=== PATIENT | female | born 1980 | race Caucasian/White ===

== ENCOUNTER 2023-02-18 11:49 | Inpatient (IN) | payer OTHER ==
[2023-02-18 12:58] VITALS: BMI 23.3
[2023-02-18] MEDS ORDERED: P-EPHED 60MG/TRIPROLIDI 2.5MG TABLET PO PRN (14:00)
[2023-02-18] MEDS ORDERED: LOPERAMIDE HCL 2 MG CAPSULE PO PRN (14:00)
[2023-02-18] MEDS ORDERED: BENZONATATE 200 MG CAPSULE PO PRN (14:00)
[2023-02-18] MEDS ORDERED: DICYCLOMINE HCL 10 MG CAPSULE PO PRN (14:00)
[2023-02-18] MEDS ORDERED: MAGNESIUM HYDROX 2400MG/30ML ORAL SUSPENSION 30 ML CUP PO PRN (14:00)
[2023-02-18] MEDS ORDERED: METHOCARBAMOL 500 MG TABLET PO PRN (14:00)
[2023-02-18] MEDS ORDERED: guaiFENesin 600 MG TABLET.ER (FP) PO PRN (14:00)
[2023-02-18] MEDS ORDERED: BENZOCAINE/MENTHOL (CHLORASEPTIC ) LOZENGE MM PRN (14:00)
[2023-02-18] MEDS ORDERED: MELATONIN 5 MG TABLETS PO PRN (14:00)
[2023-02-18] MEDS ORDERED: TRIMETHOBENZAMIDE HCL 200MG/2ML INJ IM ONE (14:00)
[2023-02-18] MEDS ORDERED: ONDANSETRON *ODT* 4 MG TABLET SL PRN (14:00)
[2023-02-18] MEDS ORDERED: LORazepam 2 MG/ML SDV VIAL IM ONE (14:00)
[2023-02-18] MEDS ORDERED: POLYETHYLENE GLYCOL (HEALTHYLAX) 3350 17 GM PACKET PO PRN (14:00)
[2023-02-18] MEDS ORDERED: BISMUTH SUBSALICYLATE 262 MG/15 ML BTL PO PRN (14:00)
[2023-02-18] MEDS ORDERED: MAG HYDROX/AL HYDROX/SIMETH 30 ML UNIT-DOSE CUP PO PRN (14:00)
[2023-02-18] MEDS ORDERED: LORazepam 1 MG TABLET PO PRN (14:05)
[2023-02-18 16:32] LABS: HEMATOCRIT 22.6 % (32.4-45.2); HEMOGLOBIN 7.4 GM/dL (10.7-15.3); MCH 29.2 pg (25.7-33.7); MCHC 32.8 g/dl (32.0-36.0); MEAN CELL VOLUME 88.9 fl (80-96); RBC 2.54 M/mm3 (3.60-5.2); RDW 23.8 % (11.6-15.6)
[2023-02-18 16:36] LABS: POTASSIUM 3.2 mmol/L (3.5-5.1)
[2023-02-18 16:39] LABS: CALCIUM 8.5 mg/dL (8.5-10.1)
[2023-02-18 16:40] LABS: ALBUMIN 2.5 g/dl (3.4-5.0)
[2023-02-18 16:42] LABS: CREATININE 0.7 mg/dL (0.55-1.3)
[2023-02-18 16:44] LABS: BILIRUBIN,TOTAL 8.8 mg/dL (0.2-1); TOT PROT 6.9 g/dl (6.4-8.2)
[2023-02-18 16:56] LABS: MEAN PLT VOLUME 8.5 fl (7.5-11.1)
[2023-02-18 17:03] LABS: PLATELET COUNT 36 10^3/uL (134-434)
[2023-02-18] MEDS: LORazepam 2 MG TABLET PO SCH ×2 (17:25→23:14)
[2023-02-18] MEDS: THIAMINE HCL 100 MG TABLET (FP) PO SCH (23:13)
[2023-02-19] MEDS: LORazepam 2 MG TABLET PO SCH ×4 (05:54→22:47)
[2023-02-19] MEDS: PRENATAL VITAMINS W/ FOLIC ACID TABLET (FP) PO SCH (10:52)
[2023-02-19] MEDS: THIAMINE HCL 100 MG TABLET (FP) PO SCH (22:47)
[2023-02-20] MEDS: LORazepam 1 MG TABLET PO SCH ×4 (06:14→22:33)
[2023-02-20] MEDS: PRENATAL VITAMINS W/ FOLIC ACID TABLET (FP) PO SCH (10:31)
[2023-02-20] MEDS ORDERED: POTASSIUM CHLORIDE ORAL LIQUID 20 MEQ/15 ML PO ONE ×2 (16:56→18:15)
[2023-02-20] MEDS: THIAMINE HCL 100 MG TABLET (FP) PO SCH (22:34)
[2023-02-21] MEDS ORDERED: LORazepam 0.5 MG TABLET PO PRN
[2023-02-21] MEDS: LORazepam 0.5 MG TABLET PO SCH ×4 (05:39→22:22)
[2023-02-21] MEDS: PRENATAL VITAMINS W/ FOLIC ACID TABLET (FP) PO SCH (10:38)
[2023-02-21 11:55] LABS: POTASSIUM 3.1 mmol/L (3.5-5.1)
[2023-02-21 11:59] LABS: ALBUMIN 2.1 g/dl (3.4-5.0); BLOOD UREA NITROGEN 5.8 mg/dL (7-18)
[2023-02-21 12:02] LABS: CREATININE 0.6 mg/dL (0.55-1.3)
[2023-02-21 12:03] LABS: BILIRUBIN,TOTAL 6.2 mg/dL (0.2-1)
[2023-02-21 12:04] LABS: TOT PROT 5.7 g/dl (6.4-8.2)
[2023-02-21] MEDS ORDERED: POTASSIUM CHLORIDE ORAL LIQUID 20 MEQ/15 ML PO ONE ×2 (12:31→13:04)
[2023-02-21] MEDS ORDERED: POTASSIUM CHLORIDE TABS 20 MEQ TABLET.ER (FP) PO ONE (13:30)
[2023-02-21 16:47] VITALS: TEMP 98.7
[2023-02-21 17:24] LABS: BASO % 0.6 % (0-2.0); EOS % 1.8 % (0-4.5); HEMATOCRIT 20.5 % (32.4-45.2); LYMPH % 23.4 % (8-40); MCH 29.6 pg (25.7-33.7); MCHC 32.5 g/dl (32.0-36.0); MEAN CELL VOLUME 91.2 fl (80-96); MEAN PLT VOLUME 10.5 fl (7.5-11.1); MONO % 13.1 % (3.8-10.2); NEUT % 61.1 % (42.8-82.8); RBC 2.25 M/mm3 (3.60-5.2); RDW 24.5 % (11.6-15.6); WHITE BLOOD COUNT 2.2 K/mm3 (4.0-10.0)
[2023-02-21 17:30] LABS: HEMOGLOBIN 6.7 GM/dL (10.7-15.3)
[2023-02-21 17:31] LABS: PLATELET COUNT 35 10^3/uL (134-434)
[2023-02-21 17:59] VITALS: BP 107/65; PULSE 90; RESP 16
[2023-02-21] MEDS: THIAMINE HCL 100 MG TABLET (FP) PO SCH (22:21)
[2023-02-22] MEDS ORDERED: LORazepam 0.5 MG TABLET PO ONE (05:00)
== END 2023-02-22 03:07 | disposition short-term general hospital (02) | DRG 775 ==
LOC: YASAS 11:49 → Y6N 15:22
PROVIDERS: ADMIT Allergy & Immunology; ATTEND Surgery
PROC: HZ2ZZZZ Detoxification Services for Substance Abuse Treatment (ICD-10-PCS; principal; 2023-02-18)
DX: F10.230 Alcohol dependence with withdrawal, uncomplicated (principal); D61.818 Other pancytopenia; D64.9 Anemia, unspecified; E87.6 Hypokalemia; K74.60 Unspecified cirrhosis of liver; R73.9 Hyperglycemia, unspecified; R94.5 Abnormal results of liver function studies; Z87.820 Personal history of traumatic brain injury; Z95.828 Presence of other vascular implants and grafts
CPT/HCPCS: 36415; 80053; 81025; 83036; 85025; 85027; 86780; 93005; 93010; C9803-CS; U0003; U0005

== ENCOUNTER 2023-02-18 20:47 | Emergency (ER) | payer OTHER ==
[2023-02-18 20:51] VITALS: BMI 17.3
[2023-02-18 22:55] LABS: BASO % 1.4 % (0-2.0); EOS % 0.5 % (0-4.5); HEMATOCRIT 23.3 % (32.4-45.2); HEMOGLOBIN 7.6 GM/dL (10.7-15.3); LYMPH % 18.5 % (8-40); MCHC 32.9 g/dl (32.0-36.0); MEAN CELL VOLUME 88.2 fl (80-96); MONO % 5.8 % (3.8-10.2); NEUT % 73.8 % (42.8-82.8); RBC 2.64 M/mm3 (3.60-5.2); RDW 24.9 % (11.6-15.6); WHITE BLOOD COUNT 4.9 K/mm3 (4.0-10.0)
[2023-02-18 23:01] LABS: INR 2.2 (0.83-1.09); PROTHROMBIN TIME (PATIENT) 25.3 SEC (9.7-13.0)
[2023-02-18 23:12] LABS: POTASSIUM 4.8 mmol/L (3.5-5.1)
[2023-02-18 23:14] LABS: BLOOD UREA NITROGEN 5.9 mg/dL (7-18); CALCIUM 8.3 mg/dL (8.5-10.1)
[2023-02-18 23:15] LABS: ALBUMIN 2.5 g/dl (3.4-5.0)
[2023-02-18 23:18] LABS: CREATININE 0.7 mg/dL (0.55-1.3)
[2023-02-18 23:19] LABS: BILIRUBIN,TOTAL 8.4 mg/dL (0.2-1); TOT PROT 7.1 g/dl (6.4-8.2)
[2023-02-18 23:22] LABS: ANISOCYTOSIS 3+; MACROCYTOSIS 0; TARGET CELLS 1+
[2023-02-18 23:23] LABS: PLATELET COUNT 62 10^3/uL (134-434)
[2023-02-18 23:24] LABS: MEAN PLT VOLUME 9.5 fl (7.5-11.1)
[2023-02-19 01:27] VITALS: BP 137/91; PULSE 89; RESP 12; TEMP 99.2
[2023-02-21] MEDS ORDERED: POTASSIUM CHLORIDE ORAL LIQUID 20 MEQ/15 ML PO ONE (13:30)
== END 2023-02-19 02:32 | disposition home or self-care (01) ==
LOC: JER 20:47
DX: R17 Unspecified jaundice (principal); R10.13 Epigastric pain; R10.11 Right upper quadrant pain; R53.1 Weakness; K70.9 Alcoholic liver disease, unspecified; F10.230 Alcohol dependence with withdrawal, uncomplicated; Y90.9 Presence of alcohol in blood, level not specified
CPT/HCPCS: 36415; 76705-TC; 80053; 83690; 85025; 85610; 93005; 93010; 99285-25

== ENCOUNTER 2023-02-21 19:42 | Inpatient (IN) | payer OTHER ==
[2023-02-21 20:45] LABS: BASO % 0.6 % (0-2.0); EOS % 1.3 % (0-4.5); HEMATOCRIT 23.8 % (32.4-45.2); HEMOGLOBIN 7.4 GM/dL (10.7-15.3); MCH 28.8 pg (25.7-33.7); MCHC 31.2 g/dl (32.0-36.0); MEAN CELL VOLUME 92.1 fl (80-96); MEAN PLT VOLUME 9.7 fl (7.5-11.1); MONO % 9.9 % (3.8-10.2); NEUT % 68.2 % (42.8-82.8); PLATELET COUNT 46 10^3/uL (134-434); RBC 2.59 M/mm3 (3.60-5.2); RDW 24.3 % (11.6-15.6); WHITE BLOOD COUNT 2.9 K/mm3 (4.0-10.0)
[2023-02-21 21:38] LABS: INR 2.14 (0.83-1.09); PROTHROMBIN TIME (PATIENT) 24.6 SEC (9.7-13.0)
[2023-02-21 21:41] LABS: ACTIVATED PTT 42.6 SECONDS (25.2-36.5)
[2023-02-21] MEDS ORDERED: FAMOTIDINE 20 MG/50 ML IVPB 20 MG/50 ML MG IVPB ONE ×2 (22:05)
[2023-02-21] MEDS ORDERED: MAG HYDROX/AL HYDROX/SIMETH 30 ML UNIT-DOSE CUP ONE (22:05)
[2023-02-21] MEDS ORDERED: MAG HYDROX/AL HYDROX/SIMETH 30 ML UNIT-DOSE CUP PO ONE (22:05)
[2023-02-21 22:23] LABS: POTASSIUM 3.7 mmol/L (3.5-5.1)
[2023-02-21 22:25] LABS: ALBUMIN 2.4 g/dl (3.4-5.0); BLOOD UREA NITROGEN 5.8 mg/dL (7-18); CALCIUM 8.6 mg/dL (8.5-10.1); MAGNESIUM 1.4 mg/dL (1.8-2.4)
[2023-02-21 22:28] LABS: BILIRUBIN,DIRECT 4.2 mg/dL (0.0-0.2); CREATININE 0.7 mg/dL (0.55-1.3)
[2023-02-21 22:30] LABS: BILIRUBIN,TOTAL 6.5 mg/dL (0.2-1); TOT PROT 6.7 g/dl (6.4-8.2)
[2023-02-21] MEDS ORDERED: PANTOPRAZOLE SODIUM 40 MG VIAL IVPUSH ONE (22:34)
[2023-02-21] MEDS ORDERED: ACETAMINOPHEN 1000 MG/100 ML BAG IVPB ONE (22:42)
[2023-02-21] MEDS ORDERED: PANTOPRAZOLE SODIUM 40 MG/100 ML BAG IVPB ONE (23:26)
[2023-02-21] MEDS ORDERED: ACETAMINOPHEN INJECTION 100 ML IVPB ONE (23:45)
[2023-02-22] MEDS ORDERED: LORazepam 0.5 MG TABLET PO PRN (03:23)
[2023-02-22] MEDS ORDERED: MAGNESIUM SULF 50% (8.12 MEQ/2 ML-1 GM VIAL) IVPB ONE ×2 (03:55→14:15)
[2023-02-22] MEDS ORDERED: MAGNESIUM 1GM/D5W 100ML - 100 ML IVPB IVPB ONE (06:00)
[2023-02-22] MEDS: THIAMINE HCL 100 MG TABLET (FP) PO SCH (09:08)
[2023-02-22] MEDS: FOLIC ACID 1 MG TABLET (FP) PO SCH (09:08)
[2023-02-22] MEDS: PANTOPRAZOLE SODIUM 40 MG VIAL IVPUSH SCH ×2 (09:09→21:08)
[2023-02-22 11:41] LABS: BASO % 0.6 % (0-2.0); HEMATOCRIT 25.7 % (32.4-45.2); HEMOGLOBIN 8.3 GM/dL (10.7-15.3); LYMPH % 22.9 % (8-40); MCH 29.4 pg (25.7-33.7); MCHC 32.3 g/dl (32.0-36.0); MEAN PLT VOLUME 9.5 fl (7.5-11.1); MONO % 12.8 % (3.8-10.2); NEUT % 60.7 % (42.8-82.8); PLATELET COUNT 49 10^3/uL (134-434); RBC 2.82 M/mm3 (3.60-5.2); RDW 23.4 % (11.6-15.6); WHITE BLOOD COUNT 2.3 K/mm3 (4.0-10.0)
[2023-02-22 11:55] LABS: POTASSIUM 3.4 mmol/L (3.5-5.1)
[2023-02-22 11:56] LABS: ALBUMIN 2.4 g/dl (3.4-5.0)
[2023-02-22 11:58] LABS: BILIRUBIN,DIRECT 4.1 mg/dL (0.0-0.2)
[2023-02-22 12:00] LABS: TOT PROT 6.5 g/dl (6.4-8.2)
[2023-02-22 12:01] LABS: BILIRUBIN,TOTAL 7.5 mg/dL (0.2-1)
[2023-02-22 12:02] LABS: BLOOD UREA NITROGEN 5.5 mg/dL (7-18); CALCIUM 8.1 mg/dL (8.5-10.1); MAGNESIUM 1.8 mg/dL (1.8-2.4)
[2023-02-22 12:05] LABS: CREATININE 0.8 mg/dL (0.55-1.3); PHOSPHOROUS 3.4 mg/dL (2.5-4.9)
[2023-02-22 12:10] LABS: ANISOCYTOSIS 1+; MACROCYTOSIS 1+; OVALOCYTE 1+; TEAR DROP CELLS 1+
[2023-02-22 15:04] LABS: RETICULOCYTES 4.32 % (0.5-1.5)
[2023-02-22] MEDS: PrednisoLONE 15 MG/5 ML UNIT-DOSE CUP PO SCH (15:14)
[2023-02-22] MEDS: LACTULOSE 20 GM/30 ML UDC (FOR ORAL USE ONLY) PO SCH (21:08)
[2023-02-22 21:15] LABS: EPI CELLS 35 /uL (0-25.1); HYALINE CASTS 2 /uL (0-3.1); PH,URINE 6.5 (5.0-8.0); URINE APPEARANCE CLEAR; URINE BILIRUBIN 2+ (NEGATIVE); URINE COLOR DK YELLOW; URINE GLUCOSE (UA) NEGATIVE (NEGATIVE); URINE KETONE TRACE (NEGATIVE); URINE LEUK ESTERASE TRACE (NEGATIVE); URINE NITRITE POSITIVE (NEGATIVE); URINE PROTEIN TRACE (NEGATIVE); URINE RBC 131 /uL (0-23.9); URINE WBC 6 /uL (0-25.8)
[2023-02-23] MEDS ORDERED: TRIMETHOBENZAMIDE HCL 200MG/2ML INJ IM ONE (03:27)
[2023-02-23 09:27] LABS: INR 2.13 (0.83-1.09); PROTHROMBIN TIME (PATIENT) 24.5 SEC (9.7-13.0)
[2023-02-23 09:37] LABS: BASO % 0.3 % (0-2.0); EOS % 0.2 % (0-4.5); HEMATOCRIT 26.6 % (32.4-45.2); HEMOGLOBIN 8.7 GM/dL (10.7-15.3); LYMPH % 18.9 % (8-40); MCH 29.2 pg (25.7-33.7); MCHC 32.7 g/dl (32.0-36.0); MEAN CELL VOLUME 89.4 fl (80-96); MEAN PLT VOLUME 9.1 fl (7.5-11.1); MONO % 10.7 % (3.8-10.2); NEUT % 69.9 % (42.8-82.8); PLATELET COUNT 68 10^3/uL (134-434); RBC 2.98 M/mm3 (3.60-5.2); RDW 23.4 % (11.6-15.6); WHITE BLOOD COUNT 4.4 K/mm3 (4.0-10.0)
[2023-02-23 09:43] LABS: POTASSIUM 3.4 mmol/L (3.5-5.1)
[2023-02-23] MEDS ORDERED: PHYTONADIONE 10 MG/1 ML AMP IVPB ONE (09:45)
[2023-02-23 09:50] LABS: ALBUMIN 2.3 g/dl (3.4-5.0); CALCIUM 8.1 mg/dL (8.5-10.1); MAGNESIUM 1.8 mg/dL (1.8-2.4)
[2023-02-23] MEDS: PANTOPRAZOLE SODIUM 40 MG VIAL IVPUSH SCH ×2 (09:50→22:46)
[2023-02-23] MEDS: LACTULOSE 20 GM/30 ML UDC (FOR ORAL USE ONLY) PO SCH ×2 (09:50→22:45)
[2023-02-23] MEDS: FOLIC ACID 1 MG TABLET (FP) PO SCH (09:50)
[2023-02-23 09:51] LABS: BLOOD UREA NITROGEN 4.9 mg/dL (7-18)
[2023-02-23] MEDS: THIAMINE HCL 100 MG TABLET (FP) PO SCH (09:51)
[2023-02-23] MEDS: PrednisoLONE 15 MG/5 ML UNIT-DOSE CUP PO SCH (09:52)
[2023-02-23 09:53] LABS: BILIRUBIN,DIRECT 3.8 mg/dL (0.0-0.2); BILIRUBIN,TOTAL 6.1 mg/dL (0.2-1); CREATININE 0.7 mg/dL (0.55-1.3); TOT PROT 6.4 g/dl (6.4-8.2)
[2023-02-23 09:54] LABS: BILIRUBIN,TOTAL 6.1 mg/dL (0.2-1); TOT PROT 6.5 g/dl (6.4-8.2)
[2023-02-23] MEDS ORDERED: POTASSIUM CHLORIDE ORAL LIQUID 20 MEQ/15 ML PO ONE (10:53)
[2023-02-23] MEDS: RIFAXIMIN 550 MG TABLET PO SCH ×2 (11:10→22:46)
[2023-02-23] MEDS: POLYETHYLENE GLYCOL (HEALTHYLAX) 3350 17 GM PACKET PO SCH ×2 (16:17→22:45)
[2023-02-24] MEDS ORDERED: MELATONIN 5 MG TABLETS PO PRN (00:35)
[2023-02-24 10:26] LABS: BASO % 1.7 % (0-2.0); EOS % 0.9 % (0-4.5); HEMATOCRIT 25.9 % (32.4-45.2); HEMOGLOBIN 8.5 GM/dL (10.7-15.3); LYMPH % 31.6 % (8-40); MCH 29.6 pg (25.7-33.7); MCHC 32.9 g/dl (32.0-36.0); MEAN CELL VOLUME 89.8 fl (80-96); MEAN PLT VOLUME 9.1 fl (7.5-11.1); MONO % 12.5 % (3.8-10.2); NEUT % 53.3 % (42.8-82.8); PLATELET COUNT 86 10^3/uL (134-434); RBC 2.89 M/mm3 (3.60-5.2); RDW 23.3 % (11.6-15.6); WHITE BLOOD COUNT 5.7 K/mm3 (4.0-10.0)
[2023-02-24 10:31] LABS: INR 2.01 (0.83-1.09); PROTHROMBIN TIME (PATIENT) 23.2 SEC (9.7-13.0)
[2023-02-24 10:49] LABS: POTASSIUM 3.3 mmol/L (3.5-5.1)
[2023-02-24 10:51] LABS: CALCIUM 8.3 mg/dL (8.5-10.1)
[2023-02-24] MEDS: RIFAXIMIN 550 MG TABLET PO SCH (10:51)
[2023-02-24] MEDS: PANTOPRAZOLE SODIUM 40 MG VIAL IVPUSH SCH (10:51)
[2023-02-24] MEDS: POLYETHYLENE GLYCOL (HEALTHYLAX) 3350 17 GM PACKET PO SCH (10:51)
[2023-02-24] MEDS: FOLIC ACID 1 MG TABLET (FP) PO SCH (10:51)
[2023-02-24] MEDS: THIAMINE HCL 100 MG TABLET (FP) PO SCH (10:51)
[2023-02-24 10:52] LABS: ALBUMIN 2.2 g/dl (3.4-5.0); BLOOD UREA NITROGEN 6.8 mg/dL (7-18)
[2023-02-24 10:54] LABS: BILIRUBIN,DIRECT 3.3 mg/dL (0.0-0.2)
[2023-02-24 10:55] LABS: CREATININE 0.8 mg/dL (0.55-1.3)
[2023-02-24 10:56] LABS: TOT PROT 6.3 g/dl (6.4-8.2)
[2023-02-24 10:57] LABS: BILIRUBIN,TOTAL 4.9 mg/dL (0.2-1)
[2023-02-24] MEDS: LACTULOSE 20 GM/30 ML UDC (FOR ORAL USE ONLY) PO SCH ×2 (10:57→21:59)
[2023-02-24] MEDS: PrednisoLONE 15 MG/5 ML UNIT-DOSE CUP PO SCH (12:14)
[2023-02-24] MEDS ORDERED: POTASSIUM CHLORIDE ORAL LIQUID 20 MEQ/15 ML PO ONE (14:41)
[2023-02-25] MEDS ORDERED: PANTOPRAZOLE SODIUM 40 MG VIAL IVPUSH SCH (10:00)
[2023-02-25 10:01] LABS: INR 1.93 (0.83-1.09); PROTHROMBIN TIME (PATIENT) 22.2 SEC (9.7-13.0)
[2023-02-25] MEDS: FOLIC ACID 1 MG TABLET (FP) PO SCH (10:11)
[2023-02-25] MEDS: THIAMINE HCL 100 MG TABLET (FP) PO SCH (10:11)
[2023-02-25] MEDS: LACTULOSE 20 GM/30 ML UDC (FOR ORAL USE ONLY) PO SCH ×2 (10:11)
[2023-02-25 10:15] LABS: POTASSIUM 3.2 mmol/L (3.5-5.1)
[2023-02-25 10:18] LABS: ALBUMIN 2.4 g/dl (3.4-5.0); BLOOD UREA NITROGEN 6.4 mg/dL (7-18); CALCIUM 8.4 mg/dL (8.5-10.1)
[2023-02-25 10:21] LABS: BILIRUBIN,DIRECT 3.2 mg/dL (0.0-0.2); CREATININE 0.7 mg/dL (0.55-1.3)
[2023-02-25 10:22] LABS: BASO % 0.9 % (0-2.0); EOS % 0.9 % (0-4.5); HEMOGLOBIN 9.3 GM/dL (10.7-15.3); MCH 28.9 pg (25.7-33.7); MCHC 32.2 g/dl (32.0-36.0); MEAN CELL VOLUME 89.7 fl (80-96); MEAN PLT VOLUME 8.5 fl (7.5-11.1); MONO % 14.1 % (3.8-10.2); NEUT % 52.1 % (42.8-82.8); PLATELET COUNT 105 10^3/uL (134-434); RBC 3.23 M/mm3 (3.60-5.2); RDW 22.6 % (11.6-15.6); WHITE BLOOD COUNT 5.3 K/mm3 (4.0-10.0)
[2023-02-25 10:23] LABS: BILIRUBIN,TOTAL 4.9 mg/dL (0.2-1); TOT PROT 6.5 g/dl (6.4-8.2)
[2023-02-25] MEDS: PrednisoLONE 15 MG/5 ML UNIT-DOSE CUP PO SCH (12:02)
[2023-02-25] MEDS ORDERED: POTASSIUM CHLORIDE TABS 20 MEQ TABLET.ER (FP) PO SCH (12:15)
[2023-02-25 14:41] VITALS: BP 106/55; PULSE 87; RESP 18; TEMP 98.9
[2023-02-25 14:45] VITALS: BMI 24.8
== END 2023-02-25 17:45 | disposition home or self-care (01) | DRG 280 ==
LOC: JER 19:42 → JERBED 02-22 01:22 → UNDOADMOB 02-22 01:22 → INTOOBSV 02-22 01:22 → J5S 02-22 04:01 → JERBED 02-22 04:01 → J5S 02-22 14:49 → JERBED 02-22 14:49 → OBSVTOIN 02-25 10:00
PROVIDERS: ADMIT Internal Medicine; ATTEND Internal Medicine
PROC: 30233N1 Transfusion of Nonautologous Red Blood Cells into Peripheral Vein, Percutaneous Approach (ICD-10-PCS; principal; 2023-02-25)
DX: K70.10 Alcoholic hepatitis without ascites (principal); K70.30 Alcoholic cirrhosis of liver without ascites; D61.818 Other pancytopenia; D64.9 Anemia, unspecified; R16.1 Splenomegaly, not elsewhere classified; F10.10 Alcohol abuse, uncomplicated
CPT/HCPCS: 36415; 36430; 71260-TC; 74177-TC; 74181-TC; 80048; 80053; 80076; 81003; 82105; 82140; 82150; 82248; 82272; 82728; 83540; 83550; 83690; 83735; 84100; 84484; 84703; 85025; 85045; 85610; 85730; 86140; 86704; 86803; 86850; 86900; 86901; 86922; 87040; 87340; 87517; 93005; 93010; 97116-GP; 97161-GP; 99285-25; G0378; P9038; P9058; Q9967

== ENCOUNTER 2023-06-08 14:10 | Inpatient (IN) | payer OTHER ==
[2023-06-08 14:32] VITALS: BMI 23.3
[2023-06-08] MEDS ORDERED: guaiFENesin 600 MG TABLET.ER (FP) PO PRN (18:51)
[2023-06-08] MEDS ORDERED: BISMUTH SUBSALICYLATE 524 MG/30 ML PO PRN (18:51)
[2023-06-08] MEDS ORDERED: BENZONATATE 200 MG CAPSULE PO PRN (18:51)
[2023-06-08] MEDS ORDERED: P-EPHED 60MG/TRIPROLIDI 2.5MG TABLET PO PRN (18:51)
[2023-06-08] MEDS ORDERED: POLYETHYLENE GLYCOL (HEALTHYLAX) 3350 17 GM PACKET PO PRN (18:51)
[2023-06-08] MEDS ORDERED: MAGNESIUM HYDROX 2400MG/30ML ORAL SUSPENSION 30 ML CUP PO PRN (18:51)
[2023-06-08] MEDS ORDERED: BENZOCAINE/MENTHOL (CHLORASEPTIC ) LOZENGE MM PRN (18:51)
[2023-06-08] MEDS ORDERED: MAG HYDROX/AL HYDROX/SIMETH 30 ML UNIT-DOSE CUP PO PRN (18:51)
[2023-06-08] MEDS ORDERED: ONDANSETRON *ODT* 4 MG TABLET SL PRN (18:51)
[2023-06-08] MEDS ORDERED: LOPERAMIDE HCL 2 MG CAPSULE PO PRN (18:51)
[2023-06-08] MEDS ORDERED: DICYCLOMINE HCL 10 MG CAPSULE PO PRN (18:51)
[2023-06-08] MEDS ORDERED: LORazepam 2 MG TABLET PO ONE (18:54)
[2023-06-08] MEDS ORDERED: LORazepam 1 MG TABLET PO PRN (18:54)
[2023-06-08] MEDS ORDERED: LORazepam 2 MG TABLET ONE (19:20)
[2023-06-08] MEDS ORDERED: METHOCARBAMOL 500 MG TABLET ONE (19:47)
[2023-06-08] MEDS: METHOCARBAMOL 500 MG TABLET PO PRN (19:50)
[2023-06-09] MEDS: FOLIC ACID 1 MG TABLET (FP) PO SCH ×2 (02:44→10:10)
[2023-06-09] MEDS: RIFAXIMIN 550 MG TABLET PO SCH ×3 (02:45→22:46)
[2023-06-09] MEDS: MELATONIN 5 MG TABLETS PO SCH ×2 (02:45→22:46)
[2023-06-09] MEDS: THIAMINE HCL 100 MG TABLET (FP) PO SCH ×2 (02:45→22:46)
[2023-06-09] MEDS: PANTOPRAZOLE 40 MG TABLET PO SCH ×2 (02:45→10:10)
[2023-06-09] MEDS: LACTULOSE 20 GM/30 ML UDC (FOR ORAL USE ONLY) PO SCH ×3 (02:45→22:47)
[2023-06-09] MEDS: LORazepam 2 MG TABLET PO SCH ×5 (02:58→22:47)
[2023-06-09] MEDS: PRENATAL VITAMINS W/ FOLIC ACID TABLET (FP) PO SCH (10:10)
[2023-06-09] MEDS: predniSONE 20 MG TABLET (UD) PO SCH (10:30)
[2023-06-09] MEDS: METHOCARBAMOL 500 MG TABLET PO PRN (11:14)
[2023-06-09 11:55] LABS: HEMATOCRIT 25.2 % (32.4-45.2); HEMOGLOBIN 8.2 GM/dL (10.7-15.3); MCH 29.8 pg (25.7-33.7); MCHC 32.4 g/dl (32.0-36.0); MEAN PLT VOLUME 8.4 fl (7.5-11.1); PLATELET COUNT 67 10^3/uL (134-434); RBC 2.74 M/mm3 (3.60-5.2); RDW 22.5 % (11.6-15.6); WHITE BLOOD COUNT 4.2 K/mm3 (4.0-10.0)
[2023-06-09 12:15] LABS: ALBUMIN 2.8 g/dl (3.4-5.0); CALCIUM 8.2 mg/dL (8.5-10.1)
[2023-06-09 12:16] LABS: BLOOD UREA NITROGEN 9.2 mg/dL (7-18)
[2023-06-09 12:19] LABS: CREATININE 0.6 mg/dL (0.55-1.3)
[2023-06-09 12:20] LABS: BILIRUBIN,TOTAL 7.4 mg/dL (0.2-1); TOT PROT 6.4 g/dl (6.4-8.2)
[2023-06-09] MEDS ORDERED: POTASSIUM CHLORIDE TABS 20 MEQ TABLET.ER (FP) PO ONE (23:10)
[2023-06-10] MEDS: LORazepam 1 MG TABLET PO SCH ×4 (05:59→22:46)
[2023-06-10] MEDS: PANTOPRAZOLE 40 MG TABLET PO SCH (10:51)
[2023-06-10] MEDS: RIFAXIMIN 550 MG TABLET PO SCH ×2 (10:51→22:46)
[2023-06-10] MEDS: FOLIC ACID 1 MG TABLET (FP) PO SCH (10:51)
[2023-06-10] MEDS: PRENATAL VITAMINS W/ FOLIC ACID TABLET (FP) PO SCH (10:51)
[2023-06-10] MEDS: LACTULOSE 20 GM/30 ML UDC (FOR ORAL USE ONLY) PO SCH ×3 (10:51→22:46)
[2023-06-10] MEDS: predniSONE 20 MG TABLET (UD) PO SCH (10:51)
[2023-06-10] MEDS ORDERED: POTASSIUM CHLORIDE ORAL LIQUID 20 MEQ/15 ML PO ONE (15:49)
[2023-06-10] MEDS: METHOCARBAMOL 500 MG TABLET PO PRN (21:05)
[2023-06-10] MEDS: THIAMINE HCL 100 MG TABLET (FP) PO SCH (22:46)
[2023-06-10] MEDS: MELATONIN 5 MG TABLETS PO SCH (22:46)
[2023-06-11] MEDS ORDERED: LORazepam 0.5 MG TABLET PO PRN
[2023-06-11] MEDS: LORazepam 0.5 MG TABLET PO SCH ×4 (05:55→22:32)
[2023-06-11] MEDS: LACTULOSE 20 GM/30 ML UDC (FOR ORAL USE ONLY) PO SCH ×2 (06:14→13:40)
[2023-06-11] MEDS: PANTOPRAZOLE 40 MG TABLET PO SCH (10:58)
[2023-06-11] MEDS: FOLIC ACID 1 MG TABLET (FP) PO SCH (10:58)
[2023-06-11] MEDS: RIFAXIMIN 550 MG TABLET PO SCH ×2 (10:58→22:31)
[2023-06-11] MEDS: PRENATAL VITAMINS W/ FOLIC ACID TABLET (FP) PO SCH (10:59)
[2023-06-11] MEDS: predniSONE 20 MG TABLET (UD) PO SCH (10:59)
[2023-06-11] MEDS: METHOCARBAMOL 500 MG TABLET PO PRN (10:59)
[2023-06-11] MEDS ORDERED: ACETAMINOPHEN 325 MG TABLET (FP) PO PRN (12:29)
[2023-06-11] MEDS: THIAMINE HCL 100 MG TABLET (FP) PO SCH (22:31)
[2023-06-11] MEDS: MELATONIN 5 MG TABLETS PO SCH (22:31)
[2023-06-12] MEDS: LACTULOSE 20 GM/30 ML UDC (FOR ORAL USE ONLY) PO SCH ×4 (00:16→13:33)
[2023-06-12] MEDS ORDERED: LORazepam 0.5 MG TABLET PO ONE (05:00)
[2023-06-12] MEDS: PRENATAL VITAMINS W/ FOLIC ACID TABLET (FP) PO SCH (10:37)
[2023-06-12] MEDS: PANTOPRAZOLE 40 MG TABLET PO SCH (10:38)
[2023-06-12] MEDS: predniSONE 20 MG TABLET (UD) PO SCH (10:38)
[2023-06-12] MEDS: RIFAXIMIN 550 MG TABLET PO SCH (10:38)
[2023-06-12] MEDS: FOLIC ACID 1 MG TABLET (FP) PO SCH (10:38)
[2023-06-12] MEDS: POTASSIUM CHLORIDE ORAL LIQUID 20 MEQ/15 ML PO SCH ×2 (10:41→14:03)
[2023-06-12 13:24] VITALS: BP 112/68; RESP 18; TEMP 98.1
[2023-06-12 14:28] VITALS: PULSE 84
== END 2023-06-12 15:42 | disposition other institution (70) | DRG 775 ==
LOC: YASAS 14:10 → Y3N 18:57 → Y6N 06-09 03:13
PROVIDERS: ADMIT Allergy & Immunology; ATTEND Surgery
PROC: HZ2ZZZZ Detoxification Services for Substance Abuse Treatment (ICD-10-PCS; principal; 2023-06-08)
DX: F10.230 Alcohol dependence with withdrawal, uncomplicated (principal); E87.6 Hypokalemia; K70.30 Alcoholic cirrhosis of liver without ascites; K70.10 Alcoholic hepatitis without ascites; R79.89 Other specified abnormal findings of blood chemistry; Z87.19 Personal history of other diseases of the digestive system; Z87.820 Personal history of traumatic brain injury
CPT/HCPCS: 36415; 80053; 81025; 82140; 84132; 85027; 86780; 87635; 87811

== ENCOUNTER 2023-06-12 15:44 | Inpatient (IN) | payer OTHER ==
[~2023-06-12 15:44] MED LIST: ACETAMINOPHEN 325 MG TABLET (FP) PO PRN; AMMONIUM LACTATE 12% LOTION 225 GM BOTTLE TP PRN; BENZOCAINE/MENTHOL (CHLORASEPTIC ) LOZENGE MM PRN; BENZONATATE 200 MG CAPSULE PO PRN; COLLOIDAL OATMEAL 1 BAR EACH TP PRN; LOPERAMIDE HCL 2 MG CAPSULE PO PRN; MAG HYDROX/AL HYDROX/SIMETH 30 ML UNIT-DOSE CUP PO PRN; MAGNESIUM HYDROX 2400MG/30ML ORAL SUSPENSION 30 ML CUP PO PRN; METHOCARBAMOL 500 MG TABLET PO PRN; NICOTINE 7 MG/24 HOURS TOPICAL PATCH TD PRN; NICOTINE POLACRILEX 2 MG GUM BUC PRN; POLYETHYLENE GLYCOL (HEALTHYLAX) 3350 17 GM PACKET PO PRN; guaiFENesin 600 MG TABLET.ER (FP) PO PRN; hydrOXYzine PAMOATE 25 MG CAPSULE (FP) PO PRN
[2023-06-12] MEDS: LACTULOSE 20 GM/30 ML UDC (FOR ORAL USE ONLY) PO SCH ×2 (17:50→21:09)
[2023-06-12] MEDS: MELATONIN 5 MG TABLETS PO SCH (21:09)
[2023-06-12] MEDS: THIAMINE HCL 100 MG TABLET (FP) PO SCH (21:09)
[2023-06-12] MEDS: RIFAXIMIN 550 MG TABLET PO SCH (22:03)
[2023-06-13] MEDS: RIFAXIMIN 550 MG TABLET PO SCH ×2 (10:06→21:06)
[2023-06-13] MEDS: PRENATAL VITAMINS W/ FOLIC ACID TABLET (FP) PO SCH (10:06)
[2023-06-13] MEDS: FAMOTIDINE 20 MG TABLET PO SCH (10:06)
[2023-06-13] MEDS: LACTULOSE 20 GM/30 ML UDC (FOR ORAL USE ONLY) PO SCH ×4 (10:06→21:06)
[2023-06-13] MEDS: THIAMINE HCL 100 MG TABLET (FP) PO SCH (21:06)
[2023-06-13] MEDS: MELATONIN 5 MG TABLETS PO SCH (21:06)
[2023-06-14] MEDS: FAMOTIDINE 20 MG TABLET PO SCH (09:48)
[2023-06-14] MEDS: RIFAXIMIN 550 MG TABLET PO SCH ×2 (09:48→21:05)
[2023-06-14] MEDS: LACTULOSE 20 GM/30 ML UDC (FOR ORAL USE ONLY) PO SCH (09:49)
[2023-06-14] MEDS: PRENATAL VITAMINS W/ FOLIC ACID TABLET (FP) PO SCH (09:49)
[2023-06-14] MEDS: FERROUS SO4 325 MG TABLET (FP) PO SCH (13:25)
[2023-06-14] MEDS: POTASSIUM CHLORIDE TABS 20 MEQ TABLET.ER (FP) PO SCH ×2 (16:51→21:05)
[2023-06-14] MEDS: THIAMINE HCL 100 MG TABLET (FP) PO SCH (21:04)
[2023-06-14] MEDS: MELATONIN 5 MG TABLETS PO SCH (21:05)
[2023-06-15 07:11] VITALS: RESP 18; TEMP 97.8
[2023-06-15 07:12] VITALS: BP 109/73; PULSE 78
[2023-06-15] MEDS: FERROUS SO4 325 MG TABLET (FP) PO SCH (10:07)
[2023-06-15] MEDS: PRENATAL VITAMINS W/ FOLIC ACID TABLET (FP) PO SCH (10:07)
[2023-06-15] MEDS: RIFAXIMIN 550 MG TABLET PO SCH (10:07)
[2023-06-15] MEDS: POTASSIUM CHLORIDE TABS 20 MEQ TABLET.ER (FP) PO SCH (10:07)
[2023-06-15] MEDS: FAMOTIDINE 20 MG TABLET PO SCH (10:07)
== END 2023-06-15 10:40 | disposition home or self-care (01) | DRG 772 ==
LOC: YASAS 15:44 → Y5N 15:46
PROVIDERS: ADMIT Allergy & Immunology; ATTEND Psychiatry & Neurology Pain Medicine
PROC: HZ42ZZZ Group Counseling for Substance Abuse Treatment, Cognitive-Behavioral (ICD-10-PCS; principal; 2023-06-12)
DX: F10.20 Alcohol dependence, uncomplicated (principal); E72.20 Disorder of urea cycle metabolism, unspecified; E87.5 Hyperkalemia; D64.9 Anemia, unspecified; Z87.19 Personal history of other diseases of the digestive system; K70.9 Alcoholic liver disease, unspecified
CPT/HCPCS: 36415; 82140; 82728; 84132; 86803